=== PATIENT | female | born 1970 | race Two or more races ===

== ENCOUNTER 2021-06-25 07:10 | Emergency (ER) | payer OTHER ==
[~2021-06-25] VITALS: Ht 149.9 cm; Wt 63.5 kg
[2021-06-25] MEDS ORDERED: ETOMIDATE (2MG/ML) 20ML VIAL IV ONE (10:45)
[2021-06-25] MEDS ORDERED: MIDAZOLAM HCL 5 MG/ML-1ML VIAL IV ONE (10:45)
[2021-06-25] MEDS ORDERED: HYDROmorphone HCL 2 MG/ML VL/or syr IV ONE (10:45)
[2021-06-25 11:06] LABS: Basophils # (auto) 0.1 10 ^3/uL (0-0.2); Basophils % (auto) 0.7 % (0.0-2.0); Eosinophils # (auto) 0 10 ^3/uL (0-0.8); Hematocrit 46.2 % (36.0-46.0); Hemoglobin 15.6 g/dL (12.2-16.2); Lymphocytes # (auto) 0.9 10 ^3/uL (0.4-5.4); Lymphocytes % (auto) 6.6 % (10.0-50.0); Mean Corpuscular Hemoglobin 31.3 pg (28.0-32.0); Mean Corpuscular Hgb Conc. 33.8 g/dL (32.0-36.0); Mean Corpuscular Volume 92.7 fL (80.0-100.0); Monocytes # (auto) 0.8 10 ^3/uL (0-1.3); Monocytes % (auto) 6.5 % (0.0-12.0); Neutrophils # (auto) 11.1 10 ^3/uL (1.6-8.6); Neutrophils % (auto) 86.2 % (37.0-80.0); Nucleated Red Blood Cells % 0.1 %; Red Blood Cells 4.99 10^6/uL (4.0-5.20); Red Cell Distribution Width 14.7 % (11.8-14.3); White Blood Cell 12.9 10^3/uL (4.4-10.8)
[2021-06-25 11:19] LABS: Calcium 9.2 mg/dL (8.5-10.1); Magnesium 2.8 mg/dL (1.6-2.6); Potassium 4.3 mmol/L (3.5-5.1)
[2021-06-25 11:21] LABS: BUN/Creatinine Ratio 15.1
[2021-06-25 14:42] VITALS: BP 143/66
== END 2021-06-25 15:06 | disposition short-term general hospital (02) ==
LOC: EDBD 07:10 → ER 07:10
DX: S72.002A Fracture of unspecified part of neck of left femur, initial encounter for closed fracture (principal); Z20.822 Contact with and (suspected) exposure to COVID-19; W19.XXXA Unspecified fall, initial encounter; Y93.89 Activity, other specified; Y92.89 Other specified places as the place of occurrence of the external cause; Y99.8 Other external cause status
CPT/HCPCS: 27250; 36415; 73030; 73501; 73502; 73700; 80048; 83735; 85025; 87426; 93005; 96374; 99152; 99285; J1170; J2250